=== PATIENT | female | born 1960 | race Caucasian/White ===

== ENCOUNTER 2018-05-18 18:48 | Emergency (ER) | payer OTHER ==
[2018-05-18 18:57] VITALS: RESP 18
--- NOTE | 2018-05-18 19:32 | ED ---
Extremity Problem HPI - General Chief complaint: Extremity Problem,Nontraumatic Stated complaint: Feet Swelling Time Seen by Provider: 05/18/18 19:22 Source: patient, RN notes reviewed Mode of arrival: ambulatory Limitations: no limitations - History of Present Illness Initial comments: 58-year-old female presents to the emergency department with chief complaint of bilateral leg swelling. She states it has been present for last few days worsening. She states her legs are achy, pain for this time. She denies any chest pain, shortness breath. She denies any history of leg edema and denies history of CHF. Patient states that she does have known thyroid disorder, acid reflux and seizure disorder. Patient denies any headache, dizziness, shortness breath, orthopnea, nausea, vomiting. - Related Data Home Medications Medication Instructions Recorded Confirmed Cetirizine HCl [Children's Zyrtec 10 mg PO DAILY PRN 06/21/17 05/18/18 Chewable] Levothyroxine Sodium [Synthroid] 100 mcg PO DAILY 06/21/17 05/18/18 Divalproex [Depakote] 1,000 mg PO BID 05/18/18 05/18/18 Previous Rx's Medication Instructions Recorded Furosemide [Lasix] 20 mg PO DAILY #3 tab 05/18/18 Allergies Allergy/AdvReac Type Severity Reaction Status Date / Time codeine Allergy Unknown Rash/Hives Verified 05/18/18 18:57 Penicillins Allergy Unknown Rash/Hives Verified 05/18/18 18:57 morphine AdvReac Unknown Chest Pain Verified 05/18/18 18:57 aspirin Allergy Unknown Rash/Hives Uncoded 05/18/18 18:57 Review of Systems ROS Statement: Those systems with pertinent positive or pertinent negative responses have been documented in the HPI. ROS Other: All systems not noted in ROS Statement are negative. Past Medical History Past Medical History: COPD, Diabetes Mellitus, Hypertension, Seizure Disorder, Thyroid Disorder History of Any Multi-Drug Resistant Organisms: None Reported Additional Past Surgical History / Comment(s): Left hand surgery unknown date, left foot surgery unknown date, urterus-partial removal. Past Anesthesia/Blood Transfusion Reactions: No Reported Reaction Past Psychological History: No Psychological Hx Reported Smoking Status: Former smoker Past Alcohol Use History: Occasional Past Drug Use History: None Reported - Past Family History Father Family Medical History: Coronary Artery Disease (CAD) Mother Family Medical History: Hypertension General Exam Limitations: no limitations General appearance: alert, in no apparent distress Head exam: Present: atraumatic, normocephalic, normal inspection Eye exam: Present: normal appearance, PERRL, EOMI. Absent: scleral icterus, conjunctival injection, periorbital swelling ENT exam: Present: normal exam, normal oropharynx, mucous membranes moist Neck exam: Present: normal inspection, full ROM. Absent: tenderness, meningismus, lymphadenopathy Respiratory exam: Present: normal lung sounds bilaterally. Absent: respiratory distress, wheezes, rales, rhonchi, stridor Cardiovascular Exam: Present: regular rate, normal rhythm, normal heart sounds. Absent: systolic murmur, diastolic murmur, rubs, gallop, clicks Extremities exam: Present: other (Bilateral lower extremity pedal edema noted 2 + pitting) Skin exam: Present: warm, dry, intact, normal color. Absent: rash Course Vital Signs 05/18/18 05/18/18 18:55 20:59 Temperature 98.2 F Pulse Rate 93 76 Respiratory 18 18 Rate Blood Pressure 119/64 119/57 O2 Sat by Pulse 96 96 Oximetry Medical Decision Making - Medical Decision Making 58-year-old female presented for bilateral lower extremity swelling. Patient's BMP is 118 there is no evidence of congestive heart failure. Patient essentially has normal lab work, normal EKG and chest x-ray. Patient will be given Lasix at this time of Lasix for 3 days and she'll follow-up with her PCP. - Lab Data Result diagrams: 05/18/18 19:47 05/18/18 19:47 Lab Results 05/18/18 05/18/18 05/18/18 Range/Units 19:47 19:47 19:47 WBC 6.0 (3.8-10.6) k/uL RBC 3.92 (3.80-5.40) m/uL Hgb 12.0 (11.4-16.0) gm/dL Hct 36.7 (34.0-46.0) % MCV 93.7 (80.0-100.0) fL MCH 30.6 (25.0-35.0) pg MCHC 32.7 (31.0-37.0) g/dL RDW 13.3 (11.5-15.5) % Plt Count 161 (150-450) k/uL Neutrophils % 53 % Lymphocytes % 32 % Monocytes % 8 % Eosinophils % 5 % Basophils % 1 % Neutrophils # 3.2 (1.3-7.7) k/uL Lymphocytes # 1.9 (1.0-4.8) k/uL Monocytes # 0.5 (0-1.0) k/uL Eosinophils # 0.3 (0-0.7) k/uL Basophils # 0.0 (0-0.2) k/uL Sodium 140 (137-145) mmol/L Potassium 3.6 (3.5-5.1) mmol/L Chloride 102 (98-107) mmol/L Carbon Dioxide 31 H (22-30) mmol/L Anion Gap 7 mmol/L BUN 14 (7-17) mg/dL Creatinine 1.10 H (0.52-1.04) mg/dL Est GFR (CKD-EPI)AfAm 64 (>60 ml/min/1.73 sqM) Est GFR (CKD-EPI)NonAf 56 (>60 ml/min/1.73 sqM) Glucose 122 H (74-99) mg/dL Calcium 9.2 (8.4-10.2) mg/dL Magnesium 1.7 (1.6-2.3) mg/dL Total Bilirubin 0.3 (0.2-1.3) mg/dL AST 22 (14-36) U/L ALT 23 (9-52) U/L Alkaline Phosphatase 37 L (38-126) U/L Total Creatine Kinase 194 H (30-135) U/L CK-MB (CK-2) 0.7 (0.0-2.4) ng/mL CK-MB (CK-2) Rel Index 0.4 Troponin I <0.012 (0.000-0.034) ng/mL NT-Pro-B Natriuret Pep pg/mL Total Protein 6.6 (6.3-8.2) g/dL Albumin 3.6 (3.5-5.0) g/dL 05/18/18 Range/Units 19:47 WBC (3.8-10.6) k/uL RBC (3.80-5.40) m/uL Hgb (11.4-16.0) gm/dL Hct (34.0-46.0) % MCV (80.0-100.0) fL MCH (25.0-35.0) pg MCHC (31.0-37.0) g/dL RDW (11.5-15.5) % Plt Count (150-450) k/uL Neutrophils % % Lymphocytes % % Monocytes % % Eosinophils % % Basophils % % Neutrophils # (1.3-7.7) k/uL Lymphocytes # (1.0-4.8) k/uL Monocytes # (0-1.0) k/uL Eosinophils # (0-0.7) k/uL Basophils # (0-0.2) k/uL Sodium (137-145) mmol/L Potassium (3.5-5.1) mmol/L Chloride (98-107) mmol/L Carbon Dioxide (22-30) mmol/L Anion Gap mmol/L BUN (7-17) mg/dL Creatinine (0.52-1.04) mg/dL Est GFR (CKD-EPI)AfAm (>60 ml/min/1.73 sqM) Est GFR (CKD-EPI)NonAf (>60 ml/min/1.73 sqM) Glucose (74-99) mg/dL Calcium (8.4-10.2) mg/dL Magnesium (1.6-2.3) mg/dL Total Bilirubin (0.2-1.3) mg/dL AST (14-36) U/L ALT (9-52) U/L Alkaline Phosphatase (38-126) U/L Total Creatine Kinase (30-135) U/L CK-MB (CK-2) (0.0-2.4) ng/mL CK-MB (CK-2) Rel Index Troponin I (0.000-0.034) ng/mL NT-Pro-B Natriuret Pep 118 pg/mL Total Protein (6.3-8.2) g/dL Albumin (3.5-5.0) g/dL - EKG Data EKG Comments: EKG performed at 19:55 normal sinus rhythm with rate of 83 MN 170 QRS 84 QT/QTC 380/446 Disposition Clinical Impression: Leg edema Disposition: HOME SELF-CARE Condition: Stable Instructions: Leg Edema (ED) Additional Instructions: Please return to the Emergency Department if symptoms worsen or any other concerns. Prescriptions: Furosemide [Lasix] 20 mg PO DAILY #3 tab Is patient prescribed a controlled substance at d/c from ED?: No Referrals: Norah Smiley MD [Primary Care Provider] - 1-2 days Time of Disposition: 21:22
[2018-05-18 20:08] LABS: Basophils % (A) 1 %; Eosinophils # (A) 0.3 k/uL (0-0.7); Eosinophils % (A) 5 %; HCT 36.7 % (34.0-46.0); Lymphocytes # (A) 1.9 k/uL (1.0-4.8); Lymphocytes % (A) 32 %; MCH 30.6 pg (25.0-35.0); MCHC 32.7 g/dL (31.0-37.0); MCV 93.7 fL (80.0-100.0); Mean Platelet Volume 6.8; Monocytes # (A) 0.5 k/uL (0-1.0); Monocytes % (A) 8 %; Neutrophils # (A) 3.2 k/uL (1.3-7.7); Neutrophils % (A) 53 %; Platelet Count 161 k/uL (150-450); RBC 3.92 m/uL (3.80-5.40); RDW 13.3 % (11.5-15.5)
[2018-05-18 20:17] LABS: Albumin 3.6 g/dL (3.5-5.0); Calcium 9.2 mg/dL (8.4-10.2); Magnesium 1.7 mg/dL (1.6-2.3); Potassium 3.6 mmol/L (3.5-5.1); Total Bilirubin 0.3 mg/dL (0.2-1.3); Total Protein 6.6 g/dL (6.3-8.2)
[2018-05-18 20:20] LABS: Creatine Kinase 194 U/L (30-135)
--- NOTE | 2018-05-18 20:30 | XR ---
EXAMINATION TYPE: XR chest 2V DATE OF EXAM: 05/18/2018 COMPARISON: 10/26/2010 HISTORY: Foot swelling. Short of breath TECHNIQUE: Frontal and lateral views of the chest are obtained. FINDINGS: There is no heart failure nor confluent pneumonic infiltrate. Costophrenic angles are jemal r. Heart size is normal. There is no pleural effusion. Bony thorax is intact. IMPRESSION: No active cardiopulmonary disease. There is improved inspiration compared to old exam.
[2018-05-18 20:33] LABS: Creatine Kinase MB 0.7 ng/mL (0.0-2.4); Troponin I <0.012 ng/mL (0.000-0.034)
[2018-05-18] MEDS ORDERED: ACETAMINOPHEN TAB 325 MG TAB PO STA (21:19)
[2018-05-18] MEDS ORDERED: FUROSEMIDE 10 MG/ML 4 ML VIAL IV STA (21:23)
[2018-05-18 21:51] VITALS: BP 142/70; PULSE 73; TEMP 98.1
== END 2018-05-18 21:51 | disposition home or self-care (01) ==
LOC: EC 18:48
DX: R60.0 Localized edema (principal); M79.604 Pain in right leg; M79.605 Pain in left leg; E07.9 Disorder of thyroid, unspecified; G40.909 Epilepsy, unspecified, not intractable, without status epilepticus; Z87.891 Personal history of nicotine dependence; Z88.0 Allergy status to penicillin; Z88.5 Allergy status to narcotic agent; Z88.6 Allergy status to analgesic agent; Z79.899 Other long term (current) drug therapy; Z98.890 Other specified postprocedural states
CPT/HCPCS: 36415; 93005; 83880; 80053; 82550; 82553; 83735; 84484; 85025; 71046; 99284; 96374; J1940

== ENCOUNTER → 2018-12-21 | Outpatient (CLI) | payer OTHER ==
--- NOTE | 2018-12-21 15:54 | XR ---
EXAMINATION TYPE: XR knee complete bilateral DATE OF EXAM: 12/21/2018 CLINICAL HISTORY: pain TECHNIQUE: Three views of the right knee are obtained. COMPARISON: None. FINDINGS: There is no acute fracture/dislocation. Postoperative changes of total knee arthroplasty w ith well-seated femoral and tibial components. The overlying soft tissue appears unremarkable. IMPRESSION: There is no acute fracture or dislocation.ICD 10 NO FRACTURE, INITIAL EVALUATION EXAMINATION TYPE: XR knee complete bilateral DATE OF EXAM: 12/21/2018 CLINICAL HISTORY: pain TECHNIQUE: Three views of the left knee are obtained. COMPARISON: None. FINDINGS: There is no acute fracture/dislocation. The tri-compartment joint spaces appear within no rmal limits. Small suprapatellar joint effusion. The overlying soft tissue appears unremarkable. IMPRESSION: There is no acute fracture or dislocation ICD 10 NO FRACTURE, INITIAL EVALUATION
== END | disposition home or self-care (01) ==
LOC: RADXRMAIN 15:00
PROVIDERS: ATTEND Physician Assistant
DX: M25.569 Pain in unspecified knee (principal)

== ENCOUNTER → 2019-01-22 | Outpatient (CLI) | payer OTHER ==
--- NOTE | 2019-01-22 14:59 | CT ---
EXAMINATION TYPE: CT abdomen pelvis wo con DATE OF EXAM: 01/22/2019 HISTORY: left flank/groin pain CT DLP: 1083.7 mGycm. Automated Exposure Control for Dose Reduction was Utilized. TECHNIQUE: CT scan of the abdomen and pelvis is performed without oral or IV contrast. COMPARISON: NONE FINDINGS: Within the limitations of a non-contrast study, the following observations are made. LUNG BASES: No significant abnormality is appreciated. LIVER/GB: Cholecystectomy clips are noted. PANCREAS: No significant abnormality is seen. SPLEEN: No significant abnormality is seen. ADRENALS: No significant abnormality is seen. KIDNEYS: No renal calculi or hydronephrosis is evident bilaterally. BOWEL:. There is no suspicious small or large bowel dilatation. There are scattered colonic diverticu la in the left and sigmoid colon. There is mild ill-defined fluid and fat stranding proximal sigmoid colon in the left mid pelvis centered axial image 114. No well-formed fluid collection or abscess is present. No pneumoperitoneum is noted. Normal-appearing appendix from cecum is present. GENITAL ORGANS: Uterus is surgically absent or markedly atrophic. Remnant left ovary normal in size a xial image 116. Right ovary less well seen. No adnexal lesions are present. LYMPH NODES: No greater than 1cm abdominal or pelvic lymph nodes are appreciated. OSSEOUS STRUCTURES: No significant abnormality is seen. OTHER: No significant additional abnormality is seen. IMPRESSION: CT findings consistent with a mild uncomplicated acute diverticulitis proximal to mid sig moid colon of the left pelvis. Results communicated to ordering physician via telephone at time of dictation. A Document Only message has been documented for Norah Smiley MD in the [employer] Critical Result system on 01/22/2019 2:57 PM, Message ID [id number].
== END ==
LOC: RADCTMAIN 14:25
PROVIDERS: ATTEND Internal Medicine
DX: R10.9 Unspecified abdominal pain (principal); R10.2 Pelvic and perineal pain
CPT/HCPCS: 74176